=== PATIENT | male | born 1985 | race Caucasian/White ===

== ENCOUNTER 2018-07-27 10:43 | Emergency (ER) | payer SELFPAY ==
[~2018-07-27] VITALS: Ht 177.8 cm; Wt 61.1 kg
--- NOTE | 2018-07-27 11:15 | NUR ---
HEALTH THERAPIST: PT TO ROOM FROM [facility]
[2018-07-27] MEDS ORDERED: ONDANSETRON ODT 4 MG PO ONE (12:00)
[2018-07-27] MEDS ORDERED: DIHYDROERGOTAMINE 1 MG/ML, 1ML IM ONE (12:00)
[2018-07-27] MEDS ORDERED: DIPHENHYDRAMINE 25 MG CAPSULE PO ONE (12:00)
--- NOTE | 2018-07-27 12:15 | NUR ---
PT RESTING IN [facility], MEDS ORDERED FROM PHARMACY. CALL LIGHT WITHIN REACH, VSS, NAD, WCTM
[2018-07-27] MEDS ORDERED: ONDANSETRON ODT 4 MG ONE ×2 (12:38→12:43)
[2018-07-27] MEDS ORDERED: DIPHENHYDRAMINE 25 MG CAPSULE ONE (12:38)
[2018-07-27] MEDS ORDERED: OXYcodone/APAP 5/325MG TABLET ONE (13:48)
[2018-07-27 13:52] VITALS: BP 120/85
[2018-07-27] MEDS ORDERED: OXYcodone/APAP 5/325MG TABLET PO ONE (14:00)
== END 2018-07-27 13:56 | disposition home or self-care (01) ==
LOC: ED 13:51
DX: G43.109 Migraine with aura, not intractable, without status migrainosus (principal); R11.0 Nausea
CPT/HCPCS: 96372; 99284; J1110; Q0162; Q0163

== ENCOUNTER 2018-07-28 04:32 | Emergency (ER) | payer SELFPAY ==
[~2018-07-28] VITALS: Ht 177.8 cm; Wt 61.8 kg
--- NOTE | 2018-07-28 05:00 | NUR ---
PT HERE FOR HEADACHE X 1 WEEK. PT HAS HX OF MIGRAINES. PT SENSITIVE TO LIGHT. PT TREATED FOR SAME YESTERDAY. PT IN ROOM. LIGHTS OFF FOR PT COMFORT. VSS. CALL LIGHT IN REACH
[2018-07-28] MEDS ORDERED: DIPHENHYDRAMINE 50 MG/ML, 1ML ONE (05:16)
[2018-07-28] MEDS ORDERED: PROCHLORPERAZINE 5 MG/ML, 2ML ONE (05:16)
[2018-07-28] MEDS ORDERED: PROCHLORPERAZINE 5 MG/ML, 2ML IVPush ONE (05:30)
[2018-07-28] MEDS ORDERED: DIPHENHYDRAMINE 50 MG/ML, 1ML IVPush ONE (05:30)
[2018-07-28] MEDS ORDERED: SODIUM CHLORIDE FLUSH 10ML SYR IVF ONE (05:30)
--- NOTE | 2018-07-28 05:31 | NUR ---
PIV PLACED AND PT MEDICATED. CALL LIGHT IN REACH
[2018-07-28 06:00] VITALS: BP 98/70
[2018-07-28] MEDS ORDERED: KETOROLAC 30 MG/1 ML ONE (06:19)
[2018-07-28] MEDS ORDERED: KETOROLAC 30 MG/1 ML IVPush ONE (06:30)
== END 2018-07-28 07:06 | disposition home or self-care (01) ==
LOC: ED 05:35
DX: R51 Headache (principal); G89.29 Other chronic pain
CPT/HCPCS: 96374; 96375; 99283; J0780; J1200; J1885